=== PATIENT | male | born 1980 | race African-American/Black ===

== ENCOUNTER 2019-08-21 18:28 | Inpatient (IN) ==
[2019-08-21] MEDS ORDERED: MoRPHine SULFATE 4 MG/ML 1 ML CARP\\VIAL IV STA (18:31)
[2019-08-21] MEDS ORDERED: ONDANSETRON INJ 2 MG/ML 2 ML VIAL IV STA (18:31)
[2019-08-21] MEDS ORDERED: HEPARIN (PORCINE) 1000 UNIT/ML 10 ML (CATH LAB USE ONLY) ONE (18:35)
[2019-08-21] MEDS ORDERED: METOPROLOL TARTRATE 1 MG/ML VIAL IV STA (18:35)
[2019-08-21] MEDS ORDERED: NiCARDipine HCL INJ 2.5 MG/ML 10 ML AMP ONE (18:35)
[2019-08-21] MEDS ORDERED: NITROGLYCERIN/D5W 100MCG/ML 20ML SYR ONE (18:36)
[2019-08-21] MEDS ORDERED: fentaNYL citrate 100 MCG/2 ML VIAL ONE (18:36)
[2019-08-21] MEDS ORDERED: MIDAZOLAM HCL 1 MG/ML 2ML VIAL ONE (18:36)
[2019-08-21] MEDS ORDERED: AMIODARONE IV BOLUS / DRIP IV STA (18:41)
[2019-08-21] MEDS ORDERED: AMIODARONE / D5W 150 MG/100 ML BAG IV STA (18:41)
[2019-08-21 18:43] LABS: Basophils # (auto) 0.02 K/uL (0-0.2); Basophils % (auto) 0.1 %; Eosinophils # (auto) 0.07 K/uL (0-0.5); Eosinophils % (auto) 0.5 %; Hematocrit (blood only) 44.6 % (42-52); Hemoglobin 15.9 g/dL (14.0-18.0); Immature Granulocytes # (auto) 0.05 K/uL (0.00-0.02); Immature Granulocytes % (auto) 0.4 %; Lymphocytes # (auto) 3.72 K/uL (1.2-3.4); Lymphocytes % (auto) 27.6 %; Mean Corpuscular Hemoglobin 29.7 pg (25-34); Mean Corpuscular Hgb Conc 35.7 g/dL (32-36); Mean Corpuscular Volume 83.4 fL (80-100); Mean Platelet Volume 9.3 fL (7.4-10.4); Monocytes # (auto) 0.56 K/uL (0.11-0.59); Monocytes % (auto) 4.1 %; Neutrophils # (auto) 9.08 K/uL (1.4-6.5); Neutrophils % (auto) 67.3 %; Platelet Count 326 K/uL (130-400); RDW Coefficient of Variation 13.3 % (11.5-14.5); RDW Standard Deviation 40.2 fL (36.4-46.3); Red Blood Count 5.35 M/uL (4.7-6.1)
[2019-08-21] MEDS ORDERED: AMIODARONE / D5W 360 MG/200 ML BAG IV SCH (18:45)
[2019-08-21 18:53] LABS: INR 1.1 (0.9-1.1); Partial Thromboplastin Ratio 0.8; Partial Thromboplastin Time 21.6 Seconds (21.0-31.0); Prothrombin Time 11.5 Seconds (9.0-12.0)
--- NOTE | 2019-08-21 18:58 | XRay Report ---
XR chest 1V portable CLINICAL HISTORY: Chest Pain COMPARISON STUDY: No previous studies for comparison. FINDINGS: Lung volumes are mildly diminished. There is no pneumothorax or pleural effusion. There is no evidence for overt pulmonary edema. Moderate enlargement of the cardiac silhouette is noted. There is upper mediastinal widening. This could be technical on this semierect AP chest radiograph. IMPRESSION: 1. Upper mediastinal widening. This may be technical on this rotated semierect AP chest radiograph. H owever, if unexplained chest pain, CTA of the chest is recommended. 2. Mild enlargement of the cardiac silhouette, accentuated on this exam. Pulmonary vascular congestio n without overt pulmonary edema. ACT 112: Negative or not required by law. Electronically signed by: Gerardo Pastor M.D. 08/21/2019 6:57 PM
[2019-08-21] MEDS: TICAGRELOR 90 MG TAB PO SCH (19:00)
[2019-08-21 19:01] LABS: Alanine Aminotransferase 34 U/L (12-78); Albumin Level 4.2 gm/dl (3.4-5.0); BUN Creatinine Ratio 12.5 (10-20); Blood Urea Nitrogen 16 mg/dl (7-18); Calcium 9.1 mg/dl (8.5-10.1); Carbon Dioxide 28 mmol/L (21-32); Chloride 103 mmol/L (98-107); Est GFR (African American) 78.4; Est GFR (Non-African American) 67.6; Glucose 138 mg/dl (70-99); Lipase 44 U/L (73-393); Sodium 138 mmol/L (136-145)
--- NOTE | 2019-08-21 19:03 | Pre Anesthesia Assessment ---
Date of Service August 21, 2019 Pre Sedation Assessment Cardiovascular RRR, no murmur, no edema + tachycardic Respiratory normal respiratory effort, lungs clear to auscultation Pre-Sedation Airway Assessment Smoking Status: Never smoker Short, Thick Neck: Yes Mallampati Class: II ASA: ASA2 Procedure Planning Contraindications for Sedation: none Current Medications Reviewed: Yes Notes The planned sedation has been discussed with the patient. Informed Consent was obtained. I have identified the patient, determined the appropriateness of sedation and have assessed the patient immediately prior to the procedure. All medicine(s) and interventions are by my order.
[2019-08-21] MEDS ORDERED: BIVALIRUDIN 250 MG VIAL (CATH LAB ONLY) ONE (19:04)
--- NOTE | 2019-08-21 19:04 | Post Anesthesia Assessment ---
Date of Service August 21, 2019 Post Sedation Assessment Vital Signs Temp Pulse Resp BP Pulse Ox 08/21/19 18:55 174/126 H 97 08/21/19 18:50 92 H 27 H 164/117 H 98 08/21/19 18:45 82 19 157/112 H 100 08/21/19 18:42 85 20 168/102 H 99 08/21/19 18:40 85 21 160/109 H 100 08/21/19 18:38 73 22 195/111 H 98 08/21/19 18:33 84 20 186/135 H 98 08/21/19 18:26 99 08/21/19 18:25 37 C 85 20 186/135 H 98 Recovery Score Activity: Moves 4 extremities Respiration: Deep Breath/Cough Consciousness: Fully Awake Discharge Sedation Level of Care: Phase I Post Sedation Plan On clinical assessment, the patient appears to have tolerated the sedation without complications. Patient is recovering as anticipated. Patient will continue to be monitored by nursing and may be discharged when sedation discharge criteria are met per below protocol. Upon Completions of procedure up to 15 minutes continue every 5 minute vital signs and the P.A.R. score; then discharge to a Phase I or Fast Track to Phase II per the following guidelines: * Discharge Patient to appropriate Phase II area if PAR is 8 or greater or return to pre- procedure baseline. The post - procedure orders will be as directed. * If PAR score is less than 8 or not return to pre-procedure baseline then patient will follow Phase I monitoring till PAR is reached for Phase II. The Phase I may be done in procedure room or may call to secure a Phase I area. * If naloxone or flumazenil are used for reversal, hold in Phase I for continued monitoring from when last reversal dose was given for a minimum of 60 minutes or longer pending the nurse and/or physician discretion of patient condition before discharge to Phase II. Please call the Sedation Physician to re-evaluate and complete post-note for discharge to Phase II area. Do NOT discharge from procedure sedation or Phase 1 until post- sedation evaluation note is complete by procedure /sedation MD Sedation Discharge Instructions to be given to the patient at discharge to home.
[2019-08-21 19:06] LABS: Albumin Globulin Ratio 0.9 (0.9-2); Alkaline Phosphatase 45 U/L (45-117); Bilirubin,Total 0.5 mg/dl (0.2-1); Globulin 4.5 gm/dl (2.5-4.0); Total Protein 8.7 gm/dl (6.4-8.2); Troponin I < 0.015 ng/ml (0-0.045)
[2019-08-21] MEDS ORDERED: LABETALOL HCL IV 5 MG/ML 20ML (CATH LAB USE ONLY) ONE (19:26)
[2019-08-21] MEDS ORDERED: NITROGLYCERIN/D5W 100 MCG/ML BTL ONE ×2 (19:27→19:29)
--- NOTE | 2019-08-21 19:42 | Post Operative Brief Note ---
Cardiology Brief Post Op Date of Surgery August 21, 2019 Pre & Post Diagnosis Operation Date: 08/21/19 18:45 <No data on this case meets the specified criteria> Procedure Cardiac catheterization, coronary angiography Percutaneous intervention to proximal left and descending artery with drug- eluting stent. Filtrose Crusher Nishant Fernando MD Fish Drier none Estimated Blood Loss 15 Findings Consistent with Post-Op Diagnosis 38-year-old gentleman, no previous known history of cardiac or coronary artery disease. Came into hospital by ambulance with acute anterior ST elevation myocardial infarction, cardiac catheterization revealed occluded proximal left anterior d escending artery, successful PCI performed with placement of 3.5 mm x 23 mm Xience drug-eluting stent, postdilated with 4 mm NC balloon with excellent results. He had confucianism of flow however apical LAD was still occluded likely due to thrombus. Continue with aspirin, Brilinta, metoprolol, intravenous nitrates and amiodarone. Transferred to intensive care unit for close observation. Complications none
[2019-08-21] MEDS ORDERED: ONDANSETRON INJ 2 MG/ML 2 ML VIAL IV PRN (19:48)
[2019-08-21] MEDS ORDERED: SODIUM CHLORIDE 0.9% 1000ML 1,000 ML IV ONE (19:50)
--- NOTE | 2019-08-21 19:58 | Cardiac Catheterization ---
ACC Data: Mice Raiser Cardiac Status Clinical evaluation leading to the procedure Diagnostic Physicians Name: Nishant Fernando MD Closure Device Recommendations: PCI without planned CABG Cardiac Cath Procedure Full Procedure Date August 21, 2019 Pre-Procedure Diagnosis Pre-Procedure Diagnosis: STEMI (38-year-old gentleman with acute anterior STEMI, also had V. fib arrest in the emergency room requiring defibrillation.) AUC Score AUC Score: 9 Post-Procedure Diagnosis Post-Procedure Diagnosis: Successful PCI (Successful PCI of proximal LAD with placement of 3.5 mm x 23 mm Xience drug-eluting stent.) Procedure(s) Performed Procedure(s) Performed: Coronary Angiography and Drug Eluting Stent Chief Cook Nishant Fernando MD Estimated Blood Loss Estimated Blood Loss: 15 Medication(s) Medication(s): Aspirin, Bivalirudin, Fentanyl, Labetalol and Nitroglycerin Summary of Findings Successful PCI of occluded 100% proximal LAD, PCI with 3.5 mm x 23 mm Xience drug-eluting stent, postdilated with 4 mm NC balloon with 0% residual and [id number] flow. He did have thrombus occluding his apical LAD, hopefully will resolve with antiplatelet therapy. Hemodynamics Rest Ao:: 184/112 Final Ao: 164/96 LV: Not performed Recommendations Recommendations: PCI without planned CABG Procedural Complication(s) None Disposition ICU I attest to the content of the Intraoperative Record and any orders documented therein. Any exceptions are noted below. PG Care Time/CCT Total # of Minutes Spent Total Time Spent with Patient: Total time spent is greater than 50% in coordination of care (as documented) at patient's floor/unit and/or counseling patient:
--- NOTE | 2019-08-21 19:58 | Emergency Department Note ---
Entered by Kirsten Rashid acting as a scribe for Layo Rocha DO History of Present Illness General Chief complaint: Heart Alert Stated complaint: HEART ALERT History of Present Illness Provider complaint: chest pain Onset (ago): hour(s) 1 Location: chest and left Radiation: non-radiation Pain Consistency: + other (episode) Maximum Pain Intensity: 10 Relieved By: + none Associated symptoms: + denies other symptoms (back pain, neck pain ) and + other (former smoker, family history of WI); no shortness of breath Treatments prior to arrival: other (Aspirin, 2 nitroglycerin, Zofran) The patient is a 38 year old male who presents to the ED with complaints of an episode of chest pain that started 1 hour ago. The patient states that his pain is worse of the left side of his chest and it is non-radiating. The patient denies back pain, neck pain and shortness of breath. Per EMS, the patient was sitting and eating when his pain started. Per EMS, the patient was given Aspirin, 2 nitroglycerin and Zofran en route. The patient states that none of these medications helped his pain. The patient states that his mother had an WI when she was in her 40s. The patient notes that he is a former smoker. Home Medications Home Medications Medication Instructions Recorded Confirmed Type Unobtainable 08/21/19 08/21/19 History Allergies Allergy/AdvReac Type Severity Reaction Status Date / Time Unable to Assess Allergy Verified 08/21/19 18:55 Past Med/Surg History Medical History (Updated 08/22/19 @ 00:25 by Kirsten Rashid) HTN (hypertension) Family History (Updated 08/22/19 @ 00:25 by Kirsten Rashid) Mother Myocardial infarction Social History Preferred Language: Belarusian Communication Ability: Effective Policy Manager Required: No Beliefs That Will Affect Care: None Current Living Situation: Spouse and Family Other Information That Helps Us Care for You: No Feels Safe at Home: Yes Safety Concerns: Feels Safe At This Time Smoking Status: Former smoker Smoking End Date: 2012 ; Hx Alcohol Use: Yes Alcohol type: beer Hx Substance Use: No Review of Systems See HPI for pertinent positives & negatives. and A total of 10 systems reviewed and were otherwise negative Physical Exam Vital Signs Vital Signs - 24 hr 08/21/19 18:25 08/21/19 18:26 08/21/19 18:33 Temperature 37 C Temperature Source Oral Pulse Rate 85 84 Pulse Rate [Apical] Pulse Rate from SpO2 Sensor 85 Pulse Rhythm [Apical] Pulse Strength [Apical] Respiratory Rate 20 20 Respiratory Effort / Characteristics Respiratory Depth Respiratory Pattern Blood Pressure 186/135 H 186/135 H Blood Pressure [Left Arm] Blood Pressure Mean 152 151 Blood Pressure Mean [Left Arm] Blood Pressure Position [Left Arm] Pulse Oximetry 98 99 98 Oxygen Delivery Method Room Air Room Air Oxygen Flow Rate Sepsis Recent Fever Within 48 Hours No Sepsis New/Unexplained Change in Mental Status No Sepsis Action Taken by Nursing No Action Required 08/21/19 18:38 08/21/19 18:40 08/21/19 18:41 Temperature Temperature Source Pulse Rate 73 85 Pulse Rate [Apical] Pulse Rate from SpO2 Sensor 76 85 Pulse Rhythm [Apical] Pulse Strength [Apical] Respiratory Rate 22 21 Respiratory Effort / Characteristics Respiratory Depth Respiratory Pattern Blood Pressure 195/111 H 160/109 H Blood Pressure [Left Arm] Blood Pressure Mean 129 125 Blood Pressure Mean [Left Arm] Blood Pressure Position [Left Arm] Pulse Oximetry 98 100 Oxygen Delivery Method Non-rebreather Oxygen Flow Rate 15 15 15 Sepsis Recent Fever Within 48 Hours Sepsis New/Unexplained Change in Mental Status Sepsis Action Taken by Nursing 08/21/19 18:42 08/21/19 18:45 08/21/19 18:50 Temperature Temperature Source Pulse Rate 85 82 92 H Pulse Rate [Apical] Pulse Rate from SpO2 Sensor 87 82 90 Pulse Rhythm [Apical] Pulse Strength [Apical] Respiratory Rate 20 19 27 H Respiratory Effort / Characteristics Respiratory Depth Respiratory Pattern Blood Pressure 168/102 H 157/112 H 164/117 H Blood Pressure [Left Arm] Blood Pressure Mean 128 123 129 Blood Pressure Mean [Left Arm] Blood Pressure Position [Left Arm] Pulse Oximetry 99 100 98 Oxygen Delivery Method Oxygen Flow Rate 15 15 15 Sepsis Recent Fever Within 48 Hours Sepsis New/Unexplained Change in Mental Status Sepsis Action Taken by Nursing 08/21/19 18:55 08/21/19 19:49 08/21/19 19:50 Temperature 36.9 C 36.9 C Temperature Source Oral Oral Pulse Rate Pulse Rate [Apical] 85 85 Pulse Rate from SpO2 Sensor 89 Pulse Rhythm [Apical] Regular Pulse Strength [Apical] Normal Respiratory Rate 14 20 Respiratory Effort / Characteristics Non-Labored Spontaneous Non-Labored Spontaneous Respiratory Depth Normal Normal Respiratory Pattern Regular Blood Pressure 174/126 H Blood Pressure [Left Arm] 169/130 H 169/130 H Blood Pressure Mean 149 Blood Pressure Mean [Left Arm] 143 143 Blood Pressure Position [Left Arm] Lying Lying Pulse Oximetry 97 97 96 Oxygen Delivery Method Nasal Cannula Nasal Cannula Oxygen Flow Rate 15 2 Sepsis Recent Fever Within 48 Hours Sepsis New/Unexplained Change in Mental Status Sepsis Action Taken by Nursing 08/21/19 20:04 Temperature Temperature Source Pulse Rate Pulse Rate [Apical] 85 Pulse Rate from SpO2 Sensor Pulse Rhythm [Apical] Regular Pulse Strength [Apical] Normal Respiratory Rate 18 Respiratory Effort / Characteristics Non-Labored Spontaneous Respiratory Depth Normal Respiratory Pattern Blood Pressure Blood Pressure [Left Arm] 157/129 H Blood Pressure Mean Blood Pressure Mean [Left Arm] 138 Blood Pressure Position [Left Arm] Lying Pulse Oximetry 97 Oxygen Delivery Method Nasal Cannula Oxygen Flow Rate 2 Sepsis Recent Fever Within 48 Hours Sepsis New/Unexplained Change in Mental Status Sepsis Action Taken by Nursing GENERAL: The patient is awake and alert. He is very anxious and appears to be uncomfortable. He appears to be in severe pain. EYES: The conjunctivae are injected bilaterally. The pupils are round and reactive. EARS, NOSE, MOUTH AND THROAT: The nose is without any evidence of any deformity. Mucous membranes are moist. Tongue is midline. NECK: The neck is nontender and supple. RESPIRATORY: There are rales noted in both lung sanchez. There is tachypnea. There is no conversational dyspnea. CARDIOVASCULAR: Regular rate and rhythm noted there no murmurs rubs or gallops normal S1 normal S2. GASTROINTESTINAL: The abdomen is soft. Abdomen is nontender. MUSCULOSKELETAL/EXTREMITIES: There is no evidence of gross deformity full range of motion is noted in the hips and shoulders. SKIN: There is no obvious evidence of any rash. Trace pedal edema was noted. Pulses are symmetric in both lower extremities. Radial pulses are symmetric and bounding. NEUROLOGIC: Patient is awake alert and oriented x3 strength is symmetric patellar reflexes are 2+ bilaterally Course Course 182: Past medical records reviewed. The patient was evaluated in room B01. A complete history and physical exam was performed. 1825: I discussed the patient's case with Dr. Fernando- Cardiology. He states that he will come and evaluated the patient. 1836: The patient went into a dysrhythmia at this time. CPR was started and patient was defibrillated two times at 200 joules. He returned to a normal sinus rhythm with spontaneous return of pulse. 1933: I discussed the patient's case with Dr. Traylor [facility], Hospitalist. He will evaluate the patient for further management. Consultations Consultation #1: I discussed the patient's case with Dr. Fernando- Cardiology. He states that he will come and evaluated the patient. Time: 18:26 Consultation #2: I discussed the patient's case with Dr. Traylor [facility], Hospitalist. He will evaluate the patient for further management. Time: 19:33 Administered Medications Atorvastatin Calcium (Lipitor) 40 mg PO QAM [facility] Stop: 09/20/19 19:59 Last Admin: 08/21/19 21:12 Dose: 40 mg Documented by: [id number] Amiodarone HCl/Dextrose (Nexterone / D5w) 360 mg in 200 mls @ 16.667 mls/hr IV .Q12H DEEJAY Stop: 09/21/19 00:40 Last Admin: 08/22/19 00:46 Dose: 0.5 mg/min, 16.7 mls/hr Documented by: [id number] Cosigned by: [id number] Sodium Chloride (Nss 1000ml) 1,000 mls @ 100 mls/hr IV .Q10H ONE Stop: 08/22/19 05:49 Last Admin: 08/21/19 20:56 Dose: 100 mls/hr Documented by: [id number] Famotidine 20 mg/ Syringe 5 mls @ 2.5 mls/min IV Q12H DEEJAY Stop: 09/20/19 20:14 Last Admin: 08/21/19 20:54 Dose: 2.5 mls/min Documented by: [id number] Nitroglycerin/Dextrose (Nitroglycerin/D5w 100 Mcg/Ml) 250 mls @ 3 mls/hr IV .Q24H DEEJAY; Protocol Stop: 09/20/19 21:14 Last Titration: 08/21/19 23:16 Dose: 5 mcg/min, 3 mls/hr Documented by: [id number] Admin: 08/21/19 21:37 Dose: 10 mcg/min, 6 mls/hr Documented by: [id number] Cosigned by: [id number] Metoprolol Tartrate (Lopressor) 25 mg PO BID DEEJAY Stop: 09/20/19 20:59 Last Admin: 08/21/19 20:55 Dose: 25 mg Documented by: [id number] Ticagrelor (Brilinta) 90 mg PO BID DEEJAY Stop: 09/20/19 20:59 Last Admin: 08/21/19 19:00 Dose: 180 mg Documented by: [id number] Discontinued Medications Amiodarone HCl (Cordarone Iv Bolus / Drip) 1 ea IV NOW STA; Protocol Stop: 08/21/19 18:42 Last Admin: 08/21/19 19:49 Dose: 1 ea Documented by: [id number] Bivalirudin (Angiomax (Process Designer Only)) Confirm Administered Dose 500 mg .ROUTE .STK-MED ONE Stop: 08/21/19 19:05 Last Admin: 08/21/19 19:49 Dose: 500 mg Documented by: [id number] Fentanyl Citrate (Fentanyl Citrate) Confirm Administered Dose 100 mcg .ROUTE .STK-MED ONE Stop: 08/21/19 18:37 Last Admin: 08/21/19 19:47 Dose: 100 mcg Documented by: [id number] Heparin Sodium (Porcine) (Heparin Iv Bolus (Process Designer Use Only)) Confirm Administered Dose 10,000 units .ROUTE .STK-MED ONE Stop: 08/21/19 18:36 Last Admin: 08/21/19 19:47 Dose: Not Given Documented by: [id number] Heparin Sodium/Sodium Chloride (Heparin/Nss 1000 Unit/500ml Flush Bag) Confirm Administered Dose 3,000 units IV .STK-MED ONE Stop: 08/21/19 18:37 Last Admin: 08/21/19 19:48 Dose: 3,000 units Documented by: [id number] Amiodarone HCl/Dextrose (Nexterone / D5w) 150 mg in 100 mls @ 600 mls/hr IV ONE STA Stop: 08/21/19 18:50 Last Infusion: 08/21/19 20:52 Dose: 0 mls/hr Documented by: [id number] Cosigned by: [id number] Admin: 08/21/19 18:49 Dose: 600 mls/hr Documented by: [id number] Cosigned by: [id number] Amiodarone HCl/Dextrose (Nexterone / D5w) 360 mg in 200 mls @ 33.333 mls/hr IV .Q6H [facility] Stop: 08/22/19 00:44 Last Admin: 08/21/19 20:57 Dose: 1 mg/min, 33.3 mls/hr Documented by: [id number] Cosigned by: [id number] Labetalol HCl (Normodyne (Process Designer Use Only)) Confirm Administered Dose 10 mg .ROUTE .STK-MED ONE Stop: 08/21/19 19:27 Last Admin: 08/21/19 19:49 Dose: 10 mg Documented by: [id number] Metoprolol Tartrate (Lopressor) 5 mg IV NOW STA Stop: 08/21/19 18:36 Last Admin: 08/21/19 19:14 Dose: Not Given Documented by: [id number] Midazolam HCl (Versed) Confirm Administered Dose 2 mg .ROUTE .STK-MED ONE Stop: 08/21/19 18:37 Last Admin: 08/21/19 19:48 Dose: 2 mg Documented by: [id number] Morphine Sulfate (Morphine Sulfate) 4 mg IV NOW STA Stop: 08/21/19 18:32 Last Admin: 08/21/19 18:38 Dose: 4 mg Documented by: [id number] Nicardipine HCl (Cardene) Confirm Administered Dose 25 mg .ROUTE .STK-MED ONE Stop: 08/21/19 18:36 Last Admin: 08/21/19 19:47 Dose: Not Given Documented by: [id number] Nitroglycerin/Dextrose (Nitroglycerin/D5w 100 Mcg/Ml 20ml Syringe) Confirm Administered Dose 2,000 mcg .ROUTE .STK-MED ONE Stop: 08/21/19 18:37 Last Admin: 08/21/19 19:48 Dose: 2,000 mcg Documented by: [id number] Nitroglycerin/Dextrose (Nitroglycerin/D5w 100 Mcg/Ml) Confirm Administered Dose 25 mg .ROUTE .STK-MED ONE Stop: 08/21/19 19:28 Last Admin: 08/21/19 19:49 Dose: 5 mcg.per.kg Documented by: [id number] Cosigned by: [id number] Nitroglycerin/Dextrose (Nitroglycerin/D5w 100 Mcg/Ml) Confirm Administered Dose 25 mg .ROUTE .STK-MED ONE Stop: 08/21/19 19:30 Last Admin: 08/21/19 19:49 Dose: Not Given Documented by: [id number] Ondansetron HCl (Zofran) 4 mg IV NOW STA Stop: 08/21/19 18:32 Last Admin: 08/21/19 18:38 Dose: 4 mg Documented by: [id number] Critical Care Time Critical Care Time: Yes Total Critical Care Time: 60 I have personally spent greater than 60 minutes of critical care time in the direct management of this patient. This includes bedside care, interpretation o f diagnostic studies, and testing, discussion with consultants, patient, and family members, and other required patient management activities. This 60 minutes is in excess of all separately billable procedures. Medical Decision Making Differential Diagnosis Differential diagnosis: Etiologies such as shingles, musculoskeletal pain, pericarditis, myocarditis, cardiac ischemia, pericardial tamponade, pneumonia, pneumothorax, pleural effusion, hemothorax, pleurisy, aortic pathology, pulmonary embolism, intra- abdominal process, as well as others were considered. Medical Records Attestation: I reviewed the patient's medical records. Home Medications Current Medication List: was personally reviewed by me Laboratory Data Attestation: I reviewed the patient's lab results. Result diagrams: 08/21/19 18:34 08/21/19 21:38 Lab Results 08/21/19 08/21/19 08/21/19 Range/Units 18:34 18:34 18:34 WBC 13.50 H (4.8-10.8) K/uL RBC 5.35 (4.7-6.1) M/uL Hgb 15.9 (14.0-18.0) g/dL Hct 44.6 (42-52) % MCV 83.4 (80-100) fL MCH 29.7 (25-34) pg MCHC 35.7 (32-36) g/dL RDW Std Deviation 40.2 (36.4-46.3) fL RDW Coeff of Lazaro 13.3 (11.5-14.5) % Plt Count 326 (130-400) K/uL MPV 9.3 (7.4-10.4) fL Immature Gran % (Auto) 0.4 % Neut % (Auto) 67.3 % Lymph % (Auto) 27.6 % Cotton % (Auto) 4.1 % Eos % (Auto) 0.5 % Baso % (Auto) 0.1 % Immature Gran # (Auto) 0.05 H (0.00-0.02) K/uL Neut # (Auto) 9.08 H (1.4-6.5) K/uL Lymph # (Auto) 3.72 H (1.2-3.4) K/uL Cotton # (Auto) 0.56 (0.11-0.59) K/uL Eos # (Auto) 0.07 (0-0.5) K/uL Baso # (Auto) 0.02 (0-0.2) K/uL PT 11.5 (9.0-12.0) Seconds INR 1.1 (0.9-1.1) APTT 21.6 (21.0-31.0) Seconds PTT Ratio 0.8 Sodium 138 (136-145) mmol/L Potassium (3.5-5.1) mmol/L Chloride 103 (98-107) mmol/L Carbon Dioxide 28 (21-32) mmol/L Anion Gap 7.0 (3-11) BUN 16 (7-18) mg/dl Creatinine 1.31 (0.6-1.4) mg/dl Est Cr Clr Drug Dosing Not Reportable Est GFR ( Amer) 78.4 Est GFR (Non-Af Amer) 67.6 BUN/Creatinine Ratio 12.5 (10-20) Glucose 138 H (70-99) mg/dl Calcium 9.1 (8.5-10.1) mg/dl Total Bilirubin 0.5 (0.2-1) mg/dl AST (15-37) U/L ALT 34 (12-78) U/L Alkaline Phosphatase 45 (45-117) U/L Troponin I < 0.015 (0-0.045) ng/ml Total Protein 8.7 H (6.4-8.2) gm/dl Albumin 4.2 (3.4-5.0) gm/dl Globulin 4.5 H (2.5-4.0) gm/dl Albumin/Globulin Ratio 0.9 (0.9-2) Triglycerides (0-150) mg/dl Cholesterol (0-200) mg/dl LDL Cholesterol, Calc mg/dl VLDL Cholesterol, Calc mg/dl HDL Cholesterol mg/dl Cholesterol/HDL Ratio Lipase 44 L (73-393) U/L 08/21/19 Range/Units 18:34 WBC (4.8-10.8) K/uL RBC (4.7-6.1) M/uL Hgb (14.0-18.0) g/dL Hct (42-52) % MCV (80-100) fL MCH (25-34) pg MCHC (32-36) g/dL RDW Std Deviation (36.4-46.3) fL RDW Coeff of Lazaro (11.5-14.5) % Plt Count (130-400) K/uL MPV (7.4-10.4) fL Immature Gran % (Auto) % Neut % (Auto) % Lymph % (Auto) % Cotton % (Auto) % Eos % (Auto) % Baso % (Auto) % Immature Gran # (Auto) (0.00-0.02) K/uL Neut # (Auto) (1.4-6.5) K/uL Lymph # (Auto) (1.2-3.4) K/uL Cotton # (Auto) (0.11-0.59) K/uL Eos # (Auto) (0-0.5) K/uL Baso # (Auto) (0-0.2) K/uL PT (9.0-12.0) Seconds INR (0.9-1.1) APTT (21.0-31.0) Seconds PTT Ratio Sodium (136-145) mmol/L Potassium (3.5-5.1) mmol/L Chloride (98-107) mmol/L Carbon Dioxide (21-32) mmol/L Anion Gap (3-11) BUN (7-18) mg/dl Creatinine (0.6-1.4) mg/dl Est Cr Clr Drug Dosing Est GFR ( Amer) Est GFR (Non-Af Amer) BUN/Creatinine Ratio (10-20) Glucose (70-99) mg/dl Calcium (8.5-10.1) mg/dl Total Bilirubin (0.2-1) mg/dl AST (15-37) U/L ALT (12-78) U/L Alkaline Phosphatase (45-117) U/L Troponin I (0-0.045) ng/ml Total Protein (6.4-8.2) gm/dl Albumin (3.4-5.0) gm/dl Globulin (2.5-4.0) gm/dl Albumin/Globulin Ratio (0.9-2) Triglycerides 262 H (0-150) mg/dl Cholesterol 219 H (0-200) mg/dl LDL Cholesterol, Calc 129 mg/dl VLDL Cholesterol, Calc 52 mg/dl HDL Cholesterol 38 mg/dl Cholesterol/HDL Ratio 6 Lipase (73-393) U/L Imaging Data Radiologist's Impression: Radiology results as stated below per my review and the radiologist's interpretation: XR chest 1V portable CLINICAL HISTORY: Chest Pain COMPARISON STUDY: No previous studies for comparison. FINDINGS: Lung volumes are mildly diminished. There is no pneumothorax or pleural effusion. There is no evidence for overt pulmonary edema. Moderate enlargement of the cardiac silhouette is noted. There is upper mediastinal widening. This could be technical on this semierect AP chest radiograph. IMPRESSION: 1. Upper mediastinal widening. This may be technical on this rotated semierect AP chest radiograph. However, if unexplained chest pain, CTA of the chest is recommended. 2. Mild enlargement of the cardiac silhouette, accentuated on this exam. Pulmonary vascular congestion without overt pulmonary edema. ACT 112: Negative or not required by law. Electronically signed by: Gerardo Pastor M.D. 08/21/2019 6:57 PM ECG Data Attestation: I personally reviewed and interpreted this ECG as follows: Indication: + chest pain Rate (beats per minute): 83 Rhythm: + normal sinus ECG ST segments: + ST elevation (anteriorly, with reciprocal changes noted in inferior leads) ECG Findings: + PVCs and + Peaked T waves (consistent with ischemia) Comparison ECG Date: from (prehospital) Change: no significant change Additional Comments: PREHOSPITAL EKG: Rate: 86 Rhythm: Normal sinus rhythm Findings: No ectopy, ST elevation noted in anterior leads with reciprocal changes noted inferiorly. No prior EKG. SECOND EKG: Rate: 85 Rhythm: Normal sinus rhythm Findings: No ectopy, acute ST elevation noted in anterior leads with reciprocal changes noted in inferior leads, consistent with anterior wall WI. Changes have worsened since first EKG. Blood Pressure Blood Pressure Findings: Normal blood pressure Blood Pressure Disposition: did not require urgent referral MDM Narrative The patient is a 38-year-old male who presented to the emergency department by ambulance for an evaluation of chest pain. I received a prehospital notifica tion about this patient. He was made a heart alert prior to arrival because of an abnormal EKG which appear to be consistent with an anterior wall WI. The patient was treated with aspirin and nitroglycerin prior to arrival. He was placed on oxygen. Upon arrival to the emergency department the patient had serial EKGs by the prehospital personnel as well as the emergency department staff. I reviewed the serial EKGs which did reveal progression of acute anterior wall WI with reciprocal changes in the inferior leads. The patient was treated with IV fluids and IV morphine in the emergency department. I discussed his condition with the energy auditor shortly after the patient's arrival. The patient continued to have very severe pain. Initially we did order Lopressor and the patient however this was held after he had an episode of wide-complex tachycardia as well as V. fib. The patient received 2 defibrillations as well as CPR. He did have a return of pulses. He was treated with amiodarone. I discussed the patient's condition with him. He is aware the severity of his condition at this time. He was evaluated by the energy auditor and was agreeable to interventional treatment. The patient did not require advanced airway management prior to the Process Designer as he was awake and alert despite having the episode of wide-complex tachycardia and ventricular fibrillation. Impression & Plan Acute anterior wall WI, Acute lateral wall myocardial infarction, Cardiac arrest, Ventricular fibrillation, Chest pain Discharge Plan Visit Data *Final* Discharge Date/Time: 08/21/19 18:55 Chief Complaint: Heart Alert Stated Complaint: HEART ALERT ED Provider: Layo Rocha Discharge Problem: Acute anterior wall WI, Acute lateral wall myocardial infarction, Cardiac arrest, Ventricular fibrillation, Chest pain Patient Disposition: Being Evaluated by Hospitalist Discharge Instructions Interventions: ED Discharge Assessment Last Done: 08/21/19 18:55 Discharge Problem: Chest pain Qualifiers: Chest pain type: unspecified Qualified Code(s): R07.9 - Chest pain, unspecified The scribe's documentation has been prepared under my direction and personally reviewed by me in its entirety. I confirm that the note above accurately reflects all work, treatment, procedures, and medical decision making performed by me.
[2019-08-21] MEDS ORDERED: ICU PROTOCOL FOR HYPERGLYCEMIA PRN (20:04)
--- NOTE | 2019-08-21 20:12 | History & Physical Report ---
Date of Service August 21, 2019 Assessment & Plan (1) Acute ST elevation myocardial infarction (STEMI) of septum: Acute STEMI of septum/occlusion of LAD/status post PTCA with single drug- eluting stent- Patient presented to the emergency department as a heart alert. Continue amiodarone drip, aspirin, Brilinta, metoprolol and other regimen per interventionalist and sample taker operator. Present on Admission?: Yes (2) Occlusion of LAD (left anterior descending) artery: See above Present on Admission?: Yes (3) S/P PTCA (percutaneous transluminal coronary angioplasty): See above Present on Admission?: Yes (4) S/P drug eluting coronary stent placement: See above Present on Admission?: Yes (5) Polymorphic ventricular tachycardia: Polymorphic ventricular tachycardia status post successful cardioversion in the ED prior to cardiac catheterization Present on Admission?: Yes (6) History of cardioversion: See above Present on Admission?: Yes (7) CAD (coronary artery disease): CAD/hypertension- Medications per interventional team Present on Admission?: Yes (8) HTN (hypertension): See above Present on Admission?: Yes (9) Admitted to intensive care unit: Admission to ICU, with consults to interventional cardiology and sample taker operator Present on Admission?: Yes History of Present Illness Chief Complaint: The patient presented to the emergency department as a heart alert, after having been found in the outpatient setting to have severe chest pain. Primary Care Provider: NO PCP The patient is a 38-year-old -L[place] male with a past medical history including hypertension, who presented to the emergency department after been found in the outpatient setting to have severe chest pain. He was also noted to have an abnormal heart rhythm, and was started on amiodarone. Upon arrival in the emergency department, the amiodarone was continued, and he did undergo successful cardioversion for polymorphic V. tach/torsades. He was then taken urgently to the [facility], where he found to have a complete proximal LAD occlusi on, which was opened with a single drug-eluting stent. Patient was then transferred to the ICU for further treatment. Allergies Allergy/AdvReac Type Severity Reaction Status Date / Time Unable to Assess Allergy Verified 08/21/19 18:55 Home Medications Home Medications Medication Instructions Recorded Confirmed Type Unobtainable 08/21/19 08/21/19 History Past Med/Surg History Social History Preferred Language: Khmer Communication Ability: Effective [place] Required: No Beliefs That Will Affect Care: None Current Living Situation: Spouse and Family Other Information That Helps Us Care for You: No Feels Safe at Home: Yes Safety Concerns: Feels Safe At This Time Smoking Status: Former smoker Smoking End Date: 2012 ; Hx Alcohol Use: Yes Alcohol type: beer Hx Substance Use: No Review of Systems Review of Systems: The patient upon arrival denied Sore throat, fevers, chills, sweats, nausea, vomiting, diarrhea , constipation, abdominal pain, pelvic pain, blood in urine or stool, dysuria, urinary frequency or urgency, headache, memory loss, loss of consciousness, rash, abnormal bruising or bleeding, imbalance, focal weakness, numbness or tingling in arms or legs, generalized ar thralgias or myalgias, back or neck pain, or night sweats. The review of systems is otherwise negative other than for that already noted above, and at least 10 systems have been reviewed. Physical Exam Physical Exam: The patient is awake, alert and oriented 3, well developed and well nourished, normocephalic and atraumatic, lying in bed and post cath procedure in no acute distress. HEENT--PERRL, EOMI, mucous membranes and oropharynx normal. Neck--supple. No JVD. No bruits. Thyroid normal, trachea midline, no adenopathy. Heart--normal S1 and S2. No murmurs, rubs or gallops. Lungs--clear bilaterally, no respiratory distress, no accessory muscle use. Abdomen--normal bowel sounds and soft. Nontender. Nondistended. Extremities--no cyanosis or clubbing. No edema. There are good distal pulses b/l. Dermatologic--normal skin turgor, normal color, no abnormal lymph nodes, no rash. Neurologic--cranial nerves II through XII grossly intact. Rheumatologic--normal range of motion. Psychiatric--normal affect. Results & Data Vital Signs (Past 12 Hours) Vital Signs Temp Pulse Resp BP Pulse Ox 08/21/19 18:55 174/126 H 97 08/21/19 18:50 92 H 27 H 164/117 H 98 08/21/19 18:45 82 19 157/112 H 100 08/21/19 18:42 85 20 168/102 H 99 08/21/19 18:40 85 21 160/109 H 100 08/21/19 18:38 73 22 195/111 H 98 08/21/19 18:33 84 20 186/135 H 98 08/21/19 18:26 99 08/21/19 18:25 98.6 F 85 20 186/135 H 98 Laboratory Results Laboratory Results WBC 13.50 K/uL (4.8-10.8) H 08/21/19 18:34 RBC 5.35 M/uL (4.7-6.1) 08/21/19 18:34 Hgb 15.9 g/dL (14.0-18.0) 08/21/19 18:34 Hct 44.6 % (42-52) 08/21/19 18:34 MCV 83.4 fL (80-100) 08/21/19 18:34 MCH 29.7 pg (25-34) 08/21/19 18:34 MCHC 35.7 g/dL (32-36) 08/21/19 18:34 RDW Std Deviation 40.2 fL (36.4-46.3) 08/21/19 18:34 RDW Coeff of Lazaro 13.3 % (11.5-14.5) 08/21/19 18:34 Plt Count 326 K/uL (130-400) 08/21/19 18:34 MPV 9.3 fL (7.4-10.4) 08/21/19 18:34 Immature Gran % (Auto) 0.4 % 08/21/19 18:34 Neut % (Auto) 67.3 % 08/21/19 18:34 Lymph % (Auto) 27.6 % 08/21/19 18:34 Davidson % (Auto) 4.1 % 08/21/19 18:34 Eos % (Auto) 0.5 % 08/21/19 18:34 Baso % (Auto) 0.1 % 08/21/19 18:34 Immature Gran # (Auto) 0.05 K/uL (0.00-0.02) H 08/21/19 18:34 Neut # (Auto) 9.08 K/uL (1.4-6.5) H 08/21/19 18:34 Lymph # (Auto) 3.72 K/uL (1.2-3.4) H 08/21/19 18:34 Davidson # (Auto) 0.56 K/uL (0.11-0.59) 08/21/19 18:34 Eos # (Auto) 0.07 K/uL (0-0.5) 08/21/19 18:34 Baso # (Auto) 0.02 K/uL (0-0.2) 08/21/19 18:34 PT 11.5 Seconds (9.0-12.0) 08/21/19 18:34 INR 1.1 (0.9-1.1) 08/21/19 18:34 APTT 21.6 Seconds (21.0-31.0) 08/21/19 18:34 PTT Ratio 0.8 08/21/19 18:34 Sodium 135 mmol/L (136-145) L 08/21/19 20:28 Potassium 5.2 mmol/L (3.5-5.1) H D 08/21/19 21:38 Chloride 102 mmol/L (98-107) 08/21/19 20:28 Carbon Dioxide 29 mmol/L (21-32) 08/21/19 20:28 Anion Gap 4.0 (3-11) 08/21/19 20:28 BUN 16 mg/dl (7-18) 08/21/19 20:28 Creatinine 1.25 mg/dl (0.6-1.4) 08/21/19 20:28 Est Cr Clr Drug Dosing 88.3 ml/min 08/21/19 20:28 Est GFR ( Amer) 83.0 08/21/19 20:28 Est GFR (Non-Af Amer) 71.6 08/21/19 20:28 BUN/Creatinine Ratio 12.4 (10-20) 08/21/19 20:28 Glucose 132 mg/dl (70-99) H 08/21/19 20:28 Calcium 9.2 mg/dl (8.5-10.1) 08/21/19 20:28 Phosphorus 4.3 mg/dl (2.5-4.9) 08/21/19 20:28 Magnesium 2.1 mg/dl (1.8-2.4) 08/21/19 20:28 Total Bilirubin 0.5 mg/dl (0.2-1) 08/21/19 18:34 AST U/L (15-37) 08/21/19 18:34 ALT 34 U/L (12-78) 08/21/19 18:34 Alkaline Phosphatase 45 U/L (45-117) 08/21/19 18:34 Troponin I 17.900 ng/ml (0-0.045) H* 08/21/19 20:28 Total Protein 8.7 gm/dl (6.4-8.2) H 08/21/19 18:34 Albumin 4.2 gm/dl (3.4-5.0) 08/21/19 18:34 Globulin 4.5 gm/dl (2.5-4.0) H 08/21/19 18:34 Albumin/Globulin Ratio 0.9 (0.9-2) 08/21/19 18:34 Triglycerides 262 mg/dl (0-150) H 08/21/19 18:34 Cholesterol 219 mg/dl (0-200) H 08/21/19 18:34 LDL Cholesterol, Calc 129 mg/dl 08/21/19 18:34 VLDL Cholesterol, Calc 52 mg/dl 08/21/19 18:34 HDL Cholesterol 38 mg/dl 08/21/19 18:34 Cholesterol/HDL Ratio 6 08/21/19 18:34 Lipase 44 U/L (73-393) L 08/21/19 18:34 Nasal Screen MRSA (PCR) Negative (Negative) 08/21/19 Unknown Diagnostic Findings [place], [place] [phone] XRay Report Patient: AAYUSH ESTEBANAdmit Date: 08/21/19 MR#: [id number]: Acct ID:[id number]: [facility] 1980[facility] Age[facility] 38Location: ED Sex: M Room/Bed: Att Phy:Diagnosis: HEART ALERT Josseline Phy: PCP,NOService Date: 08/21/19 Fam Phy:Interpreting Phy: Gerardo Pastor MD Admit Phy: Ordering Phy: Layo oRcha DO cc: ~ XR chest 1V portable CLINICAL HISTORY: Chest Pain COMPARISON STUDY: No previous studies for comparison. FINDINGS: Lung volumes are mildly diminished. There is no pneumothorax or pleural effusion. There is no evidence for overt pulmonary edema. Moderate enlargement of the cardiac silhouette is noted. There is upper mediastinal widening. This could be technical on this semierect AP chest radiograph. IMPRESSION: 1. Upper mediastinal widening. This may be technical on this rotated semierect AP chest radiograph. However, if unexplained chest pain, CTA of the chest is recommended. 2. Mild enlargement of the cardiac silhouette, accentuated on this exam. Pulmonary vascular congestion without overt pulmonary edema. ACT 112: Negative or not required by law. Electronically signed by: Gerardo Pastor M.D. 08/21/2019 6:57 PM Dictated: 08/21/191853 Transcribed: 08/21/191853 Code Status & VTE Plan Code Status Full code VTE Prophylaxis Plan VTE Prophylaxis will be ordered: Yes Critical Care Time Critical Care Time: Yes Total Critical Care Time: 45 Total critical care time was 45 minutes PG Care Time/CCT Total # of Minutes Spent Total Time Spent with Patient: Total time spent is greater than 50% in coordination of care (as documented) at patient's floor/unit and/or counseling patient: Critical Care Time: Yes Total Critical Care Time: 45 Coding Level of Care Code 36600 Initial Inpt Care Lvl [address] elevation myocardial infarction (STEMI) of septum I21.29 Occlusion of LAD (left anterior descending) artery I24.0 S/P PTCA (percutaneous transluminal coronary angioplasty) Z98.61 S/P drug eluting coronary stent placement Z95.5 Polymorphic ventricular tachycardia I47.2 History of cardioversion Z98.890 CAD (coronary artery disease) I25.10 HTN (hypertension) I10 Admitted to intensive care unit Z78.9 Additional Codes Critical Care Time - Critical Care Time: Yes ([id number]) Time Spent (min) 45
[2019-08-21 20:27] LABS: Chol HDL Ratio 6; Cholesterol 219 mg/dl (0-200); HDL Cholesterol 38 mg/dl; LDL Cholesterol Calculated 129 mg/dl; Triglycerides 262 mg/dl (0-150); VLDL Cholesterol 52 mg/dl
[2019-08-21] MEDS: FAMOTIDINE 20 MG in SYRINGE 3 ML IV SCH (20:54)
[2019-08-21] MEDS: METOPROLOL TARTRATE 25 MG TAB PO SCH (20:55)
[2019-08-21 21:02] LABS: BUN Creatinine Ratio 12.4 (10-20); Calcium 9.2 mg/dl (8.5-10.1); Creatinine Clr Calc Pharmacy 88.3 ml/min; Est GFR (Non-African American) 71.6; Magnesium 2.1 mg/dl (1.8-2.4); Phosphorus 4.3 mg/dl (2.5-4.9); Potassium 6.5 mmol/L (3.5-5.1); Troponin I 17.9 ng/ml (0-0.045)
--- NOTE | 2019-08-21 21:02 | Critical Care Consultation ---
Date of Consultation August 21, 2019 Assessment & Plan (1) Admitted to intensive care unit: Reason Critically Ill: 38-year-old male with acute anterior STEMI status post PTCA with GREG x1 to the proximal LAD. He initially presented with episode of polymorphic ventricular tachyarrhythmia requiring cardioversion x1 with conversion to normal sinus rhythm. Requiring close hemodynamic monitoring status post intervention. NEURO - * CAM ICU: NEGATIVE CARDIAC/VASCULAR - * Acute anterior STEMI status post PTCA with GREG x1 to the proximal LAD: * Complicated by transient run of symptomatic polymorphic ventricular tachyarrhythmia which did convert status post cardioversion x1. * Currently on amiodarone drip. Continue for now. * Currently on nitroglycerin drip for pain/blood pressure control. Titrate down as tolerated. * ASCVD per typical. * Trend troponins. * A.m. echo ordered. * EKG: NSR@85bpm. ST depression inferior w/ ST elevations anteriorly. QTc 440ms. * Monitor on telemetry. RESPIRATORY - * Previous smoker approximately 7 years ago. * Saturating well on room air at this time. GI/NUTRITION - * Heart healthy diet * Prophylaxis: Famotidine RENAL/LYTES - * Initial labs demonstrate hyperkalemia. Will repeat as concern for this to be an anomaly. * Repeat potassium 5.2. - * No concerns at this time. * Strict I&Os. ENDO - * No history of diabetes or thyroid disease. * BSGs per unit protocol. ISS --> gtt per unit policy. HEME - * Stable H&H. ID - * No concerns for infectious contribution at this time. LINES/IV ACCESS - * PIVs x2 DVT PROPHYLAXIS - * Will hold on chemoprophylaxis status post intraprocedural medications. * Aim for early ambulation. * SCDs I have personally spent 35 minutes of critical care time in the direct management of this patient. This is a life/limb threatening event. This includes time spent evaluating patient, direct bedside care, chart review, placing orders, interpretation of diagnostic studies, discussion with consultants, patient, and family members, as well as other required patient management activities. This time is exclusive of all separately billable procedures, and teaching time and separate from and in addition to any other critical care service time. Thank you for allowing us to participate in the care of this patient. Please refer to my attending physician's documentation for any further recommendations. (2) S/P PTCA (percutaneous transluminal coronary angioplasty): (3) S/P drug eluting coronary stent placement: (4) Polymorphic ventricular tachycardia: (5) History of cardioversion: (6) CAD (coronary artery disease): (7) HTN (hypertension): History of Present Illness Attending Physician: New Guerrero MD History of Present Illness Patient is a 38-year-old male with no reported significant past medical history who presented to the emergency department via EMS for evaluation of LEFT-sided chest pain. The patient reports that he was traveling from [place] to his home near [place] when he developed crushing LEFT-sided chest pain. He reports that he pulled over and went into a restaurant and asked them to contact EMS. Upon arrival in the emergency department, patient was assessed in the trauma bay. At some point, the patient went into a tachyarrhythmia of concern for polymorphic V. tach requiring cardioversion x1 back to normal sinus rhythm. Patient was subsequently taken to the catheterization suite where he underwent successful PTCA with GREG x1 to the proximal LAD. Patient was subsequently placed on amiodarone drip staff following bolus as well as nitroglycerin drips. On assessment in the ICU, the patient is awake, alert, and oriented. He reports complete resolve of chest pain. He feels drowsy from medications received intra-procedurally, however otherwise he reports feeling well. He specifically denies any chest pain, palpitations, shortness of breath, dizziness, lightheadedness, nausea, vomiting, abdominal pain, or extremity pain/weakness. Allergies Allergy/AdvReac Type Severity Reaction Status Date / Time Unable to Assess Allergy Verified 08/21/19 18:55 Home Medications Home Medications Medication Instructions Recorded Confirmed Type Unobtainable 08/21/19 08/21/19 History Patient History Social History Preferred Language: Georgian Communication Ability: Effective Court Transcriber Required: No Beliefs That Will Affect Care: None Current Living Situation: Spouse and Family Other Information That Helps Us Care for You: No Feels Safe at Home: Yes Safety Concerns: Feels Safe At This Time Smoking Status: Former smoker Smoking End Date: 2012 ; Hx Alcohol Use: Yes Alcohol type: beer Hx Substance Use: No Review of Systems Review of Systems: A complete 10 point review of systems was reviewed with the patient with pertinent positives and negatives as per history of present illness. All else were negative. Physical Exam Physical Exam: VITAL SIGNS - Vital signs and nursing notes were reviewed. GENERAL - 38-year-old male appearing his stated age who is in no acute distress. Communicates well with provider and answers questions appropriately. HEAD - NC/AT. EYES - PERRL with EOMI bilaterally. Sclera anicteric. Palpebral conjunctiva pink and moist with no injection noted. EARS - No deformities of external structures noted on gross examination bilaterally. No pain elicited with palpation of the tragus bilaterally. External auditory canals without discharge or otorrhea. Tympanic membranes pearly rangel without retraction or bulging. No fluid or purulent material visualized behind the TM. Handle of malleus, umbo, cone of light, pars tensa/flaccid all easily visualized. NOSE - Midline and without cyanosis. No epistaxis or purulent drainage noted. Septum midline without deviation or septal hematoma noted. MOUTH/OROPHARYNX - Without perioral cyanosis. Buccal mucosa pink and moist and without leukoplakia. Tongue midline with equal elevation of palate bilaterally. No tonsillar hypertrophy, erythema, or exudates noted. Good dentition noted. NECK - Neck with FROM. Supple to palpation without JVD. LUNGS - Chest wall symmetric without accessory muscle use, intercostals retractions, or central cyanosis. Normal vesicular breath sounds CTA B/L. No wheezes, rales, or rhonchi appreciated. CARDIAC - RRR with S1/S2. No murmur, rubs, or gallops appreciated. No reproducible tenderness to palpation appreciated over the anterior chest wall. ABDOMEN - Abdominal contour obese without pulsations or visible masses. BS normoactive all four quadrants. No tenderness, palpable masses, hepatosplenomegaly, or ascites noted. EXTREMITIES - No clubbing or peripheral cyanosis. No pretibial edema present. +3/5 radial and dorsalis pedis pulses palpated throughout. +5/5 strength noted in UE/LE bilaterally. NEUROLOGIC - Cranial nerves II through XII grossly intact. Sensory intact to light touch throughout. PSYCH - A&Ox3 and cooperates fully with examiner. Pt is very pleasant and interacts well with examiner. Results & Data ([facility]) Vital Signs (Past 12 Hours) Vital Signs Temp Pulse Pulse Resp BP BP Pulse Ox 08/21/19 19:50 36.9 C 85 20 169/130 H 96 08/21/19 18:55 174/126 H 97 08/21/19 18:50 92 H 27 H 164/117 H 98 08/21/19 18:45 82 19 157/112 H 100 08/21/19 18:42 85 20 168/102 H 99 08/21/19 18:40 85 21 160/109 H 100 08/21/19 18:38 73 22 195/111 H 98 08/21/19 18:33 84 20 186/135 H 98 08/21/19 18:26 99 08/21/19 18:25 37 C 85 20 186/135 H 98 Coding Level of Care Code Critical Care 1st 30-74 mins Diagnoses Admitted to intensive care unit Z78.9 S/P PTCA (percutaneous transluminal coronary angioplasty) Z98.61 S/P drug eluting coronary stent placement Z95.5 Polymorphic ventricular tachycardia I47.2 History of cardioversion Z98.890 CAD (coronary artery disease) I25.10 HTN (hypertension) I10 Time Spent (min) 35
[2019-08-21] MEDS: ATORVASTATIN 40 MG TAB PO SCH (21:12)
[2019-08-21] MEDS ORDERED: NITROGLYCERIN/D5W 100MCG/ML 250 ML IV SCH (21:15)
[2019-08-22] MEDS: AMIODARONE / D5W 360 MG/200 ML BAG IV SCH ×2 (00:46→13:06)
[2019-08-22 04:30] LABS: Basophils # (auto) 0.01 K/uL (0-0.2); Basophils % (auto) 0.1 %; Hematocrit (blood only) 42.5 % (42-52); Immature Granulocytes # (auto) 0.03 K/uL (0.00-0.02); Immature Granulocytes % (auto) 0.3 %; Lymphocytes # (auto) 2.16 K/uL (1.2-3.4); Lymphocytes % (auto) 19.2 %; Mean Corpuscular Hemoglobin 29.6 pg (25-34); Mean Corpuscular Hgb Conc 35.3 g/dL (32-36); Mean Platelet Volume 9.3 fL (7.4-10.4); Monocytes # (auto) 0.44 K/uL (0.11-0.59); Monocytes % (auto) 3.9 %; Neutrophils # (auto) 8.62 K/uL (1.4-6.5); Neutrophils % (auto) 76.5 %; Platelet Count 314 K/uL (130-400); RDW Coefficient of Variation 13.3 % (11.5-14.5); RDW Standard Deviation 40.3 fL (36.4-46.3); Red Blood Count 5.06 M/uL (4.7-6.1); White Blood Count 11.26 K/uL (4.8-10.8)
[2019-08-22 05:33] LABS: Magnesium 1.9 mg/dl (1.8-2.4); Phosphorus 4.5 mg/dl (2.5-4.9); Troponin I 88.9 ng/ml (0-0.045)
[2019-08-22 06:15] LABS: BUN Creatinine Ratio 13.1 (10-20); Calcium 8.6 mg/dl (8.5-10.1); Creatinine Clr Calc Pharmacy 97.7 ml/min; Est GFR (African American) 93.7; Est GFR (Non-African American) 80.9; Potassium 4.4 mmol/L (3.5-5.1)
[2019-08-22 07:10] LABS: Estimated Average Glucose 126 mg/dl
--- NOTE | 2019-08-22 07:22 | XRay Report ---
XR chest 1V portable CLINICAL HISTORY: STEMI COMPARISON STUDY: 08/21/2019 FINDINGS: The heart is the upper limits of normal in size. There is stable mild hilar prominence. The re is no overt failure. There is no focal pulmonary consolidation. There are atelectatic changes pres ent at both lung bases.[ IMPRESSION: 1. Resolution of the previously described pulmonary vascular congestion 2. Basilar opacities, likely atelectatic ACT 112: Negative or not required by law. Electronically signed by: Miguel Alvarez M.D. 08/22/2019 7:21 AM
--- NOTE | 2019-08-22 07:42 | Critical Care Progress Note ---
Date of Service August 22, 2019 Assessment & Plan (1) Admitted to intensive care unit: Reason Critically Ill: Mr. Koehler is a 38-year-old male with acute anterior STEMI status post PTCA with GREG x1 to the proximal LAD. He initially presented with episode of polymorphic ventricular tachyarrhythmia requiring cardioversion x1 with conversion to normal sinus rhythm. Requiring close hemodynamic monitoring status post intervention. NEURO - CAM ICU: NEGATIVE CARDIAC/VASCULAR - Acute anterior STEMI status post PTCA with GREG x1 to the proximal LAD: Complicated by transient run of symptomatic polymorphic ventricular tachyarrhythmia which did convert status post cardioversion x1. Currently on amiodarone drip - transition to oral amiodarone after 24h Cardiology consult appreciated Titrate down nitroglycerin drip as tolerated. ECHO - LVEF of 40-45% with mild anterior, anteroseptal and septal hypokinesis, as well as apical akinesis Secondary preventative medications started, including aspirin, ticagrelor, atorvastatin, metoprolol and lisinopril EKG: NSR@85bpm. ST depression inferior w/ ST elevations anteriorly. QTc 440ms. Monitor on telemetry. RESPIRATORY - Previous smoker approximately 7 years ago. Saturating well on room air at this time. GI/NUTRITION - Heart healthy diet d/c GI prophylaxis RENAL/LYTES - No electrolyte abnormalities noted - No concerns at this time. ENDO - No history of diabetes or thyroid disease. HbA1c 6% BSGs per unit protocol. ISS --> gtt per unit policy. HEME - Monitor H&H. ID - No concerns for infection at this time LINES/IV ACCESS - PIVs x2 DVT PROPHYLAXIS - Early ambulation. SCDs DISPOSITION - If patient remains stable, can downgrade to telemetry this afternoon Thank you for allowing us to participate in the care of this patient. Please refer to my attending physician's documentation for any further recommendations. (2) Acute anterior wall MD: (3) Ventricular fibrillation: (4) Chest pain: (5) HTN (hypertension): (6) CAD (coronary artery disease): (7) History of cardioversion: (8) Polymorphic ventricular tachycardia: (9) S/P drug eluting coronary stent placement: (10) S/P PTCA (percutaneous transluminal coronary angioplasty): Supervising Physician Co-Signing Physician Notes Dr. Locke was resident physician during care of patient. I separately evaluated patient for ozuna portions of the history and the exam. I was present during the critical portion of medical decision making, and I discussed the case with the resident. I generally agree with the findings and plan. Patient was discussed on multidisciplinary rounds and I also discussed the patient with Dr. Sanford. Able to stop amiodarone today, plus minus additional oral amiodarone, as he does not have continued ectopy we can discontinue this. Starting lisinopril. Stable for downgrade out of the ICU Subjective Mr. Koehler reports improvement in his chest pain, stating it has decreased to 3/10 in severity. He denies SOB, palpitations, or pain over his catheterization site. Review of Systems Constitutional: no fever and no chills Cardiovascular: + chest pain; no palpitations, no edema and no calf pain Gastrointestinal: no abdominal pain, no nausea and no vomiting Physical Exam Constitutional: WD/WN, vitals as above Respiratory: normal respiratory effort, lungs clear to auscultation Cardiovascular: RRR, no murmur, no edema Gastrointestinal (Abdomen): normal bowel sounds, soft, nontender, no hepatosplenomegaly Skin: no rashes, warm and dry Psychiatric: A+Ox3, euthymic affect Results & Data Vital Signs (Past 12 Hours) Vital Signs Temp Pulse Pulse Resp BP BP BP 08/22/19 06:00 77 15 145/100 H 08/22/19 05:00 72 14 141/88 H 08/22/19 04:00 36.9 C 72 15 145/95 H 08/22/19 03:00 68 14 124/82 08/22/19 01:34 72 14 134/93 08/22/19 00:34 36.7 C 75 14 122/81 08/21/19 23:34 72 16 139/100 08/21/19 22:34 68 13 108/76 08/21/19 21:34 85 16 148/113 H 08/21/19 21:04 83 16 170/124 H 08/21/19 20:34 81 14 179/133 H 08/21/19 20:19 85 20 158/106 H 08/21/19 20:04 85 18 157/129 H 08/21/19 19:50 36.9 C 85 20 169/130 H 08/21/19 19:49 36.9 C 85 14 169/130 H Pulse Ox 08/22/19 06:00 97 02/10/20 05:00 94 08/22/19 04:00 95 08/22/19 03:00 98 08/22/19 01:34 98 08/22/19 00:34 96 08/21/19 23:34 95 08/21/19 22:34 96 08/21/19 21:34 94 08/21/19 21:04 94 08/21/19 20:34 95 08/21/19 20:19 93 08/21/19 20:04 97 08/21/19 19:50 96 08/21/19 19:49 97 Resident Activity Tracking Resident Involvement: Resident Care Provided Care Provided: Adult Hospital Medicine (1) Chest pain Chest pain type: unspecified Qualified Code(s): R07.9 - Chest pain, unspecified
[2019-08-22] MEDS: METOPROLOL TARTRATE 25 MG TAB PO SCH (07:53)
[2019-08-22] MEDS: ASPIRIN 81 MG ECTAB PO SCH (07:54)
[2019-08-22] MEDS: FAMOTIDINE 20 MG in SYRINGE 3 ML IV SCH (07:55)
[2019-08-22] MEDS: TICAGRELOR 90 MG TAB PO SCH ×2 (07:57→20:53)
[2019-08-22] MEDS: ATORVASTATIN 40 MG TAB PO SCH (08:54)
--- NOTE | 2019-08-22 09:17 | XCELERA ---
[id number] [id number]
--- NOTE | 2019-08-22 09:32 | Electrocardiogram Report ---
Test Reason : Blood Pressure : / mmHG Vent. Rate : 083 BPM Atrial Rate : 083 BPM P-R Int : 168 ms QRS Dur : 072 ms QT Int : 376 ms P-R-T Axes : 043 033 -24 degrees QTc Int : 441 ms Sinus rhythm with sinus arrhythmia with occasional Premature ventricular complexes Anteroseptal infarct Acute T wave abnormality, consider inferior ischemia ACUTE OH / STEMI Abnormal ECG No previous ECGs available Confirmed by Jake Hollingsworth ([id number]) on 08/22/2019 9:31:56 AM Referred By: REFERRED SELF Confirmed By:Jake Hollingsworth
--- NOTE | 2019-08-22 09:33 | Electrocardiogram Report ---
Test Reason : Blood Pressure : / mmHG Vent. Rate : 085 BPM Atrial Rate : 085 BPM P-R Int : 174 ms QRS Dur : 072 ms QT Int : 370 ms P-R-T Axes : 040 021 -28 degrees QTc Int : 440 ms Normal sinus rhythm Anteroseptal infarct (cited on or before 21-AUG-2019) T wave abnormality, consider inferior ischemia ACUTE UT / STEMI Abnormal ECG When compared with ECG of 21-AUG-2019 18:30, (unconfirmed) Premature ventricular complexes are no longer Present Serial changes of Anteroseptal infarct Present Confirmed by Jake Hollingsworth ([id number]) on 08/22/2019 9:32:56 AM Referred By: REFERRED SELF Confirmed By:Jake Hollingsworth
--- NOTE | 2019-08-22 09:38 | Electrocardiogram Report ---
Test Reason : Blood Pressure : / mmHG Vent. Rate : 082 BPM Atrial Rate : 082 BPM P-R Int : 206 ms QRS Dur : 080 ms QT Int : 372 ms P-R-T Axes : 045 049 052 degrees QTc Int : 434 ms Normal sinus rhythm Septal infarct (cited on or before 21-AUG-2019) Abnormal ECG When compared with ECG of 21-AUG-2019 18:48, (unconfirmed) Serial changes of evolving Septal infarct Present Confirmed by Jake Hollingsworth ([id number]) on 08/22/2019 9:37:36 AM Referred By: REFERRED SELF Confirmed By:Jake Hollingsworth
--- NOTE | 2019-08-22 09:50 | Electrocardiogram Report ---
Test Reason : Blood Pressure : / mmHG Vent. Rate : 062 BPM Atrial Rate : 062 BPM P-R Int : 186 ms QRS Dur : 082 ms QT Int : 444 ms P-R-T Axes : 045 082 072 degrees QTc Int : 450 ms Normal sinus rhythm Septal infarct (cited on or before 21-AUG-2019) Abnormal ECG When compared with ECG of 21-AUG-2019 19:58, (unconfirmed) T wave inversion now evident in Anterior leads Confirmed by Jake Hollingsworth ([id number]) on 08/22/2019 9:50:10 AM Referred By: REFERRED SELF Confirmed By:Jake Hollingsworth
[2019-08-22] MEDS: lisinopriL 10 MG TAB PO SCH (12:28)
--- NOTE | 2019-08-22 16:32 | Hospitalist Progress Note ---
Date of Service August 22, 2019 Assessment & Plan (1) Acute anterior wall FL: 38yo gentleman with PMhx significant for HTN noncomplinat with medication who presented with an anterior wall FL. STEMI -pt with chest pain -EKG with polymorphic v tach on admission -post PCI with 100% occlusion of LAD with stent placement. -Echo: EF40-45% with LAD wall motion abnormalities -continue aspirin, brilinta 90mg, metoprolol 50mg BID, lipitor 40mg, lisinopril 10mg and amiodarone. -continue tele monitoring HTN -continue lisinopril 10mg FEN/GI: Heart healthy diet CODE STATUS: Full DVT proph: On brilinta, aspirin Dispo: PCU with tele Admission and Anticipated Discharge Date Admission Date: August 21, 2019 Supervising Physician Co-Signing Physician Notes Resident Physician Supervision Note: I independently interviewed and examined the patient and verified the ozuna history and physical, reviewed labs and image studies, discussed the case with the resident Dr. Cervantes and agree with the findings and care plan. Subjective Pt seen this AM. States he feels better but still having periodic chest pain. Denies SOB. N/V still present. Denies any headaches, changes to vision, abd pain, diarrhea or constipation, or swelling in hands or feet. Review of Systems Review of Systems: All systems reviewed & are unremarkable except as noted in Subjective Physical Exam Physical Exam: General: Alert, oriented. Skin: No noted rashes or bruises Psych: Appropriate mood and affect Neuro: No gross deficits HEENT: NC/AT, Chest: Nontender to palpation. CV: RRR, Normal s1, s2. No murmurs appreciated Resp: Breath sounds clear bilaterally, no increased effort of breathing. No crackles/rhonchi/rales. Abdomen: Soft, nontender, nondistended. No guarding. No organomegaly appreciated. Extremities: No edema in lower extremities bilaterally. Results & Data ([facility]) Vital Signs (Past 12 Hours) Vital Signs Temp Pulse Resp BP Pulse Ox 08/22/19 14:20 74 19 96 08/22/19 14:00 75 13 141/87 H 94 08/22/19 13:52 71 20 132/87 95 08/22/19 13:50 70 21 95 08/22/19 13:42 73 19 127/88 96 08/22/19 13:00 81 14 127/88 95 08/22/19 12:30 36.6 C 74 21 93 08/22/19 12:20 67 18 94 08/22/19 12:10 67 18 93 08/22/19 12:01 64 17 93 08/22/19 12:00 66 17 155/106 H 95 08/22/19 11:51 66 11 L 95 08/22/19 11:40 61 18 95 08/22/19 11:30 76 21 95 08/22/19 11:20 73 28 H 93 08/22/19 11:10 82 20 94 08/22/19 11:01 73 19 94 08/22/19 11:00 77 9 L 110/68 93 08/22/19 10:50 67 19 93 08/22/19 10:40 71 16 95 08/22/19 10:30 65 17 93 08/22/19 10:20 71 17 95 08/22/19 10:10 71 17 94 08/22/19 10:01 82 16 92 08/22/19 10:00 70 14 149/106 H 94 08/22/19 09:50 69 19 93 08/22/19 09:40 77 14 93 08/22/19 09:30 69 17 94 08/22/19 09:20 75 19 94 08/22/19 09:10 74 15 96 08/22/19 09:02 73 25 H 94 08/22/19 09:01 82 25 H 131/74 94 08/22/19 09:00 70 20 93 08/22/19 08:30 78 16 94 08/22/19 08:01 70 20 141/98 H 96 08/22/19 08:00 37.1 C 77 22 96 08/22/19 07:30 66 17 97 08/22/19 07:01 66 17 94 08/22/19 06:00 77 15 145/100 H 97 08/22/19 05:00 72 14 141/88 H 94 Resident Activity Tracking Resident Involvement: Resident Care Provided Care Provided: Adult Hospital Medicine
--- NOTE | 2019-08-22 17:02 | Cardiology Progress Note ---
Date of Service August 22, 2019 Assessment & Plan (1) Acute anterior wall IA: --Post primary PCI with single drug-eluting stent to proximal LAD 2. VF cardiac arrest in ED prior to PCI 3. No significant non-culprit vessel CAD 4. Ischemic cardiomyopathy, EF 40 to 45% with LAD distribution wall motion abnormality 5. Hypertension 6. Dyslipidemia Patient chest pain-free. Hemodynamically and electrically stable. Mild to moderate LV dysfunction on echo. Well-perfused with no signs of heart failure on exam. No apparent access or complications. Post procedure labs stable. Continue DAPT with aspirin, Brilinta Titrate beta-bobby, increase metoprolol to 50 mg twice daily Can discontinue IV amiodarone. Ok with PO amiodarone. Can discontinue IV nitroglycerin infusion Continue current lisinopril OK with transfer to telemetry later in day. Admission and Anticipated Discharge Date Admission Date: August 21, 2019 Subjective No recurrent chest pain this morning. Discomfort still at right groin access site No other new complaints. Telemetry reviewedno additional ventricular ectopy Review of Systems Review of Systems: All systems reviewed & are unremarkable except as noted in HPI & below Physical Exam Physical Exam: General: Comfortable, no acute distress HEENT: Sclerae anicteric, mucous membranes moist Lungs: Clear to auscultation bilaterally, no rhonchi or wheezes Cardiac: Regular rate and rhythm, no murmurs. Abdomen: Soft, nontender Extremities: Warm, well perfused, no edema. 2+ radial pulses. Tender right PRECISION FARMING COORDINATOR access site, 2+ pulse, DP/PT pulses intact Skin: No rashes or lesions. Neuro: Nonfocal Psych: Alert orient x3, normal affect and mood Results & Data ([facility]) Vital Signs (Past 12 Hours) Vital Signs Temp Pulse Resp BP Pulse Ox 08/22/19 16:00 74 08/22/19 14:20 74 19 96 08/22/19 14:00 75 13 141/87 H 94 08/22/19 13:52 71 20 132/87 95 08/22/19 13:50 70 21 95 08/22/19 13:42 73 19 127/88 96 08/22/19 13:00 81 14 127/88 95 08/22/19 12:30 97.9 F 74 21 93 08/22/19 12:20 67 18 94 08/22/19 12:10 67 18 93 08/22/19 12:01 64 17 93 08/22/19 12:00 66 17 155/106 H 95 08/22/19 11:51 66 11 L 95 08/22/19 11:40 61 18 95 08/22/19 11:30 76 21 95 08/22/19 11:20 73 28 H 93 08/22/19 11:10 82 20 94 08/22/19 11:01 73 19 94 08/22/19 11:00 77 9 L 110/68 93 08/22/19 10:50 67 19 93 08/22/19 10:40 71 16 95 08/22/19 10:30 65 17 93 08/22/19 10:20 71 17 95 08/22/19 10:10 71 17 94 08/22/19 10:01 82 16 92 08/22/19 10:00 70 14 149/106 H 94 08/22/19 09:50 69 19 93 08/22/19 09:40 77 14 93 08/22/19 09:30 69 17 94 08/22/19 09:20 75 19 94 08/22/19 09:10 74 15 96 08/22/19 09:02 73 25 H 94 08/22/19 09:01 82 25 H 131/74 94 08/22/19 09:00 70 20 93 08/22/19 08:30 78 16 94 08/22/19 08:01 70 20 141/98 H 96 08/22/19 08:00 98.8 F 77 22 96 08/22/19 07:30 66 17 97 08/22/19 07:01 66 17 94 08/22/19 06:00 77 15 145/100 H 97 08/22/19 05:00 72 14 141/88 H 94 PG Care Time/CCT Total # of Minutes Spent Total Time Spent with Patient: Total time spent is greater than 50% in coordination of care (as documented) at patient's floor/unit and/or counseling patient: Coding Level of Care Code 03744 Subseq Hosp Care Lvl 3 Diagnoses Acute anterior wall IA I21.09
--- NOTE | 2019-08-22 18:07 | Billing Data ---
Date of Service August 22, 2019 Coding Level of Care Code 91273 Subseq Hosp Care Lvl 3
[2019-08-22 20:27] LABS: BUN Creatinine Ratio 11.3 (10-20); Calcium 9.1 mg/dl (8.5-10.1); Creatinine Clr Calc Pharmacy 88.4 ml/min; Est GFR (Non-African American) 71.6
[2019-08-22 20:28] LABS: Potassium 3.6 mmol/L (3.5-5.1)
[2019-08-22] MEDS: METOPROLOL TARTRATE 50 MG TAB PO SCH (20:53)
--- NOTE | 2019-08-23 07:20 | XRay Report ---
XR chest 1V portable CLINICAL HISTORY: STEMI COMPARISON STUDY: Chest radiograph August 22, 2019. FINDINGS: Lung volumes are mildly diminished. There is no pneumothorax or pleural effusion. Linear ri ght perihilar and left basilar opacity is noted. This favors atelectasis. There may be mild right bas ilar opacity is well. There is no evidence for pulmonary edema. Cardiac size is within normal limits. IMPRESSION: 1. Linear bilateral opacities which favor atelectasis. 2. No evidence for pulmonary edema. ACT 112: Negative or not required by law. Electronically signed by: Gerardo Pastor M.D. 08/23/2019 7:19 AM
[2019-08-23 07:24] LABS: Basophils # (auto) 0.01 K/uL (0-0.2); Basophils % (auto) 0.1 %; Eosinophils # (auto) 0.02 K/uL (0-0.5); Eosinophils % (auto) 0.2 %; Hematocrit (blood only) 44.3 % (42-52); Hemoglobin 15.2 g/dL (14.0-18.0); Immature Granulocytes # (auto) 0.02 K/uL (0.00-0.02); Immature Granulocytes % (auto) 0.2 %; Lymphocytes # (auto) 2.54 K/uL (1.2-3.4); Lymphocytes % (auto) 26.9 %; Mean Corpuscular Hgb Conc 34.3 g/dL (32-36); Mean Corpuscular Volume 84.4 fL (80-100); Mean Platelet Volume 9.8 fL (7.4-10.4); Monocytes % (auto) 10.6 %; Neutrophils # (auto) 5.85 K/uL (1.4-6.5); Platelet Count 265 K/uL (130-400); RDW Coefficient of Variation 13.3 % (11.5-14.5); RDW Standard Deviation 40.5 fL (36.4-46.3); Red Blood Count 5.25 M/uL (4.7-6.1); White Blood Count 9.44 K/uL (4.8-10.8)
[2019-08-23] MEDS: ASPIRIN 81 MG ECTAB PO SCH (08:06)
[2019-08-23] MEDS: METOPROLOL TARTRATE 50 MG TAB PO SCH ×2 (08:06→19:36)
[2019-08-23] MEDS: lisinopriL 10 MG TAB PO SCH (08:06)
[2019-08-23] MEDS: AMIODARONE 200 MG TAB PO SCH (08:06)
[2019-08-23] MEDS: ATORVASTATIN 40 MG TAB PO SCH (09:57)
[2019-08-23] MEDS: TICAGRELOR 90 MG TAB PO SCH ×2 (09:58→19:36)
--- NOTE | 2019-08-23 12:36 | Cardiology Progress Note ---
Date of Service August 23, 2019 Assessment & Plan (1) Acute anterior wall MT: --Post primary PCI with single drug-eluting stent to proximal LAD 2. VF cardiac arrest in ED prior to PCI 3. No significant non-culprit vessel CAD 4. Ischemic cardiomyopathy, EF 40 to 45% with LAD distribution wall motion abnormality 5. Hypertension 6. Dyslipidemia Patient doing well today. Has had no recurrent chest pain and has remained hemodynamically, electrically stable. From a cardiac standpoint okay with discharge today. Home on DAPT with aspirin, Brilinta. Continue current metoprolol, lisinopril. Plan for p.o. amiodarone for 1 week post discharge. Continue high intensity statin. [facility] Vincent, Dr. Fontenot. Admission and Anticipated Discharge Date Admission Date: August 21, 2019 Subjective Feeling better today. Denies any chest pain. No significant shortness of breath. Telemetry reviewedno events. Review of Systems Review of Systems: All systems reviewed & are unremarkable except as noted in HPI & below Physical Exam Physical Exam: General: Comfortable, no acute distress HEENT: Sclerae anicteric, mucous membranes moist Lungs: Clear to auscultation bilaterally Cardiac: Regular rate and rhythm, no murmurs Abdomen: Soft, nontender Extremities: Warm, well perfused, no edema. 2+ radial pulses. Right EGG AND SPICE MIXER access site tender, pulse intact, no hematoma. Skin: No rashes or lesions. Neuro: Nonfocal Psych: Alert orient x3, normal affect and mood Results & Data ([facility]) Vital Signs (Past 12 Hours) Vital Signs Temp Pulse Pulse Pulse Resp BP Pulse Ox 08/23/19 11:08 98.8 F 69 18 99/62 L 96 08/23/19 08:00 67 08/23/19 07:15 97.9 F 67 18 111/76 96 08/23/19 03:37 98.6 F 79 18 108/65 96 PG Care Time/CCT Total # of Minutes Spent Total Time Spent with Patient: Total time spent is greater than 50% in coordination of care (as documented) at patient's floor/unit and/or counseling patient: Coding Level of Care Code 65202 Subseq Hosp Care Lvl 3 Diagnoses Acute anterior wall MT I21.09
--- NOTE | 2019-08-23 13:23 | Hospitalist Progress Note ---
Date of Service August 23, 2019 Assessment & Plan (1) Acute anterior wall [place]: 38yo gentleman with PMhx significant for HTN who presented with an anterior wall MA. STEMI -pt with chest pain while driving from [place] to [place] -EKG with polymorphic v tach on admission -post PCI with 100% occlusion of LAD with stent placement. -Echo: EF40-45% with LAD wall motion abnormalities -continue aspirin, brilinta 90mg, metoprolol 50mg BID, lipitor 40mg, lisinopril 10mg and amiodarone 200mg. -pt concerned about functional ability to drive home so will get pt/ot input -continue tele monitoring HTN -continue lisinopril 10mg FEN/GI: Heart healthy diet CODE STATUS: Full DVT proph: On brilinta, aspirin Dispo: PCU with tele Admission and Anticipated Discharge Date Admission Date: August 21, 2019 Supervising Physician Co-Signing Physician Notes Resident Physician Supervision Note: I independently interviewed and examined the patient and verified the ozuna history and physical, reviewed labs and image studies, discussed the case with the resident Dr. Cervantes and agree with the findings and care plan. Subjective Pt seen this AM. States he is feeling much better, denies any further episodes of chest pain or SOB. Denies any headache, changes to vision, cough, runny nose, sore throat, palpitations, abdominal pain, diarrhea or constipation, swelling in hands or feet or numbness or tingling anywhere. Review of Systems Review of Systems: All systems reviewed & are unremarkable except as noted in Subjective Physical Exam Physical Exam: General: Alert, oriented. No acute distress, laying in bed. Skin: No noted rashes or bruises Psych: Appropriate mood and affect Neuro: No gross deficits HEENT: NC/AT, PERRLA, EOMI, oropharynx moist. Chest: Nontender to palpation. CV: RRR, Normal s1, s2. No murmurs appreciated Resp: Breath sounds clear bilaterally, no increased effort of breathing. No crackles/rhonchi/rales. Abdomen: Soft, nontender, nondistended. No guarding. No organomegaly appreciated. Extremities: No edema in lower extremities bilaterally. Results & Data ([facility]) Vital Signs (Past 12 Hours) Vital Signs Temp Pulse Pulse Pulse Resp BP Pulse Ox 08/23/19 11:21 68 02/11/20 11:08 37.1 C 69 18 99/62 L 96 08/23/19 08:00 67 08/23/19 07:15 36.6 C 67 18 111/76 96 08/23/19 03:37 37.0 C 79 18 108/65 96 Resident Activity Tracking Resident Involvement: Resident Care Provided Care Provided: Adult [facility] Medicine
--- NOTE | 2019-08-23 15:01 | Electrocardiogram Report ---
Test Reason : Blood Pressure : / mmHG Vent. Rate : 066 BPM Atrial Rate : 066 BPM P-R Int : 180 ms QRS Dur : 082 ms QT Int : 510 ms P-R-T Axes : 036 042 093 degrees QTc Int : 534 ms Normal sinus rhythm Septal infarct (cited on or before 21-AUG-2019) T wave abnormality, consider anterolateral ischemia Prolonged QT Abnormal ECG When compared with ECG of 22-AUG-2019 06:56, Serial changes of Septal infarct Present Confirmed by Jake Hollingsworth ([id number]) on 08/23/2019 3:01:05 PM Referred By: REFERRED SELF Confirmed By:Jake Hollingsworth
[2019-08-23] MEDS ORDERED: ACETAMINOPHEN 500 MG TAB PO PRN (16:24)
[2019-08-23] MEDS: DOCUSATE SODIUM 100 MG CAP PO SCH (17:04)
[2019-08-23 21:02] LABS: BUN Creatinine Ratio 17.5 (10-20); Calcium 8.9 mg/dl (8.5-10.1); Creatinine Clr Calc Pharmacy 77.8 ml/min; Est GFR (African American) 71.1; Est GFR (Non-African American) 61.3; Potassium 3.2 mmol/L (3.5-5.1)
--- NOTE | 2019-08-24 06:59 | Discharge Summary ---
Date of Service August 24, 2019 Admission HPI Per Admitting Provider The patient is a 38-year-old -Thai male with a past medical history including hypertension, who presented to the emergency department after been found in the outpatient setting to have severe chest pain. He was also noted to have an abnormal heart rhythm, and was started on amiodarone. Upon arrival in the emergency department, the amiodarone was continued, and he did undergo successful cardioversion for polymorphic V. tach/torsades. He was then taken urgently to the [facility], where he found to have a complete proximal LAD occlusion, which was opened with a single drug-eluting stent. Patient was then transferred to the ICU for further treatment. Admission Exam Per Admitting Provider The patient is awake, alert and oriented 3, well developed and well nourished, normocephalic and atraumatic, lying in bed and post cath procedure in no acute distress. HEENT--PERRL, EOMI, mucous membranes and oropharynx normal. Neck--supple. No JVD. No bruits. Thyroid normal, trachea midline, no adenopathy. Heart--normal S1 and S2. No murmurs, rubs or gallops. Lungs--clear bilaterally, no respiratory distress, no accessory muscle use. Abdomen--normal bowel sounds and soft. Nontender. Nondistended. Extremities--no cyanosis or clubbing. No edema. There are good distal pulses b/l. Dermatologic--normal skin turgor, normal color, no abnormal lymph nodes, no rash. Neurologic--cranial nerves II through XII grossly intact. Rheumatologic--normal range of motion. Psychiatric--normal affect. Principal Diagnosis Myocardial Infarction Discharge Exam General: Alert, oriented. No acute distress, laying in bed. Skin: No noted rashes or bruises Psych: Appropriate mood and affect Neuro: No gross deficits HEENT: NC/AT, PERRLA, EOMI, oropharynx moist. Chest: Nontender to palpation. CV: RRR, Normal s1, s2. No murmurs appreciated Resp: Breath sounds clear bilaterally with scattered wheezes noted in left apex, no increased effort of breathing. No crackles/rhonchi/rales. Abdomen: Soft, nontender, nondistended. No guarding. No organomegaly appreciated. Extremities: No edema in lower extremities bilaterally. Discharge Data Allergies Allergy/AdvReac Type Severity Reaction Status Date / Time Unable to Assess Allergy Verified 08/21/19 18:55 Consultations 08/21/19 19:02 Consult Cardiology Stat 08/21/19 19:52 Consult Cardiac Rehabilitation Routine 08/21/19 20:05 Consult Case Management - Discharge Planning Routine Consult Blanket Winder Helper Routine 08/22/19 09:47 Consult Cardiology Routine 08/23/19 11:49 Consult Case Management - Discharge Planning Routine Procedures Performed Operation Date: 08/21/19 18:45 Actual Procedures p Aspiration/PCI w/GREG for Stemi - Nishant Fernando MD s Cineradiography w/Routine Exam - Nishant Fernando MD s Cath, Left with Cors and Vent - Nishant Fernando MD Ordered Studies 08/21/19 18:34 CL Cath Imgs for PACS use only Stat Hospital Course (1) Acute anterior wall NV: 38yo gentleman with PMhx significant for HTN who presented with an anterior wall NV. Pt admitted on aug 21, 2019 and discharged on Aug 24, 2019. STEMI -pt with chest pain while driving from [place] to [place] -EKG with polymorphic v tach on admission -post PCI with 100% occlusion of LAD with stent placement. -Echo: EF40-45% with LAD wall motion abnormalities -continue aspirin 81mg, brilinta 90mg, metoprolol 50mg BID, lipitor 40mg, lisinopril 10mg and amiodarone 200mg. -pt/ot: pt with no mobility concerns -strongly counseled on importance of adhering to above medication regimen and following up with PCP and card boxer in [place]. HTN -continue lisinopril 10mg Total Time Total Time Spent Total Time Spent (In Minutes): Se attending attestation Discharge Plan Discharge Items Patient Disposition: Home - Self-Care Reason For Visit: STEMI LAD OCCLUSION WITH GREG Discharge Diagnosis: Myocardial Infarction Activity: Per Instructions section Non-emergency contact: Primary Care Provider and Federal Judge Call non-emergency contact if: your symptoms worsen Follow-up/Referrals: Dr. Jay Ashley [Other] - 08/26/19 11:00 am (Please, follow up at Dr. Jay Ashley's office on ThursdayAugust 26 at 11:00 am. *The office is located at [address] [place] [address]. If you need to change this appointment, call the office at [phone]. DR. ASHLEY AND HIS STAFF WILL ARRANGE A FOLLOW UP APPOINTMENT WITH A TRAINMASTER.) Diet: Heart Healthy Addtl Attending Provider Instructions: You were admitted because you had a heart attack. It is very important that you take your medications as directed as they will help prevent further damage to your heart and also protect you from another heart attack. -Continue to take the following medications every day until you followup with your primary care doctor and card boxer in [place]. You are being discharged with a 30 day supply: -Aspirin 81mg once a day -Ticagrelor 90mg two times a day -Atorvastatin 40mg once a day -Amiodarone 200mg once a day -Lisinopril 10mg once a day -metoprolol tartrate 50mg twice a day. -Please followup with your primary care doctor in the next few days for renewals of your medications and to ensure that you are doing ok after discharge. They, along with your card boxer can also give you clearance for return to work. -Please also followup with your card boxer. -Please also follow the dietary recommendations of the e business consultant. It was a pleasure taking care of you during your stay here! Pending Studies at Discharge: No Stand-Alone Forms: My [facility], Work/School Release (Inpt), Smoking Cessation Medications and DC Order Prescriptions: New Brilinta 90 mg Tablet 90 mg PO BID 30 Days Qty: 60 RF: 0 atorvastatin 40 mg Tablet 40 mg PO QAM Qty: 30 RF: 0 amiodarone 200 mg Tablet 200 mg PO QAM Qty: 30 RF: 0 aspirin [Ecotrin Low Strength] 81 mg Tablet,Delayed Release (Dr/Ec) 81 mg PO QAM Qty: 30 RF: 0 lisinopril 10 mg Tablet 10 mg PO QAM Qty: 30 RF: 0 metoprolol tartrate 50 mg Tablet 50 mg PO BID Qty: 30 RF: 0 No Action Unobtainable RF: 0 Discharge Orders: Discharge Order (Routine); Ordered 08/24/19 Ordered By: La Nena Alcala/Other Patient Handouts: Prediabetes, Discharge Instructions for Heart Attack, A1C Admission Data Admit Date/Time: 08/21/19 20:05 Attending Provider: Tammy Lopez Admit Provider: New Guerrero Primary Care Provider: Jay Ashley Other Providers: New Guerrero ; Nishant Fernando ; Jose Grey ; Jake Hollingsworth Other Interventions: Discharge Summary Assessment (RN) Last Done: 08/24/19 10:39 Teach: Cardiac Cath Educ Record Last Done: 08/24/19 10:43 DC Date/Time DO NOT enter until pt leaves facility: 08/24/19 12:35 Supervising Physician Co-Signing Physician Notes Resident Physician Supervision Note: I independently interviewed and examined the patient and verified the ozuna history and physical, reviewed labs and image studies, discussed the case with the resident Dr. Cervantes and agree with the findings and care plan. Resident Activity Tracking Resident Involvement: Resident Care Provided Care Provided: Adult Hospital Medicine
[2019-08-24 07:11] LABS: Basophils # (auto) 0.01 K/uL (0-0.2); Basophils % (auto) 0.1 %; Eosinophils # (auto) 0.04 K/uL (0-0.5); Eosinophils % (auto) 0.4 %; Hematocrit (blood only) 42.8 % (42-52); Hemoglobin 15.3 g/dL (14.0-18.0); Immature Granulocytes # (auto) 0.03 K/uL (0.00-0.02); Immature Granulocytes % (auto) 0.3 %; Lymphocytes # (auto) 3.23 K/uL (1.2-3.4); Lymphocytes % (auto) 33.5 %; Mean Corpuscular Hemoglobin 29.6 pg (25-34); Mean Corpuscular Hgb Conc 35.7 g/dL (32-36); Mean Corpuscular Volume 82.8 fL (80-100); Monocytes # (auto) 0.73 K/uL (0.11-0.59); Monocytes % (auto) 7.6 %; Neutrophils # (auto) 5.61 K/uL (1.4-6.5); Neutrophils % (auto) 58.1 %; Platelet Count 268 K/uL (130-400); RDW Coefficient of Variation 12.9 % (11.5-14.5); RDW Standard Deviation 39.2 fL (36.4-46.3); Red Blood Count 5.17 M/uL (4.7-6.1); White Blood Count 9.65 K/uL (4.8-10.8)
[2019-08-24] MEDS ORDERED: POTASSIUM CHLORIDE 20 MEQ TABCR PO ONE (07:15)
[2019-08-24] MEDS ORDERED: SODIUM CHLORIDE 0.9% 1000ML 1,000 ML IV SCH (07:15)
[2019-08-24] MEDS: DOCUSATE SODIUM 100 MG CAP PO SCH (07:34)
[2019-08-24] MEDS: TICAGRELOR 90 MG TAB PO SCH (07:34)
[2019-08-24] MEDS: METOPROLOL TARTRATE 50 MG TAB PO SCH (07:34)
[2019-08-24] MEDS: lisinopriL 10 MG TAB PO SCH (07:34)
[2019-08-24] MEDS: AMIODARONE 200 MG TAB PO SCH (07:34)
[2019-08-24] MEDS: ASPIRIN 81 MG ECTAB PO SCH (07:35)
[2019-08-24 07:44] LABS: BUN Creatinine Ratio 15.5 (10-20); Calcium 9.1 mg/dl (8.5-10.1); Creatinine Clr Calc Pharmacy 79.6 ml/min; Est GFR (Non-African American) 62.9
[2019-08-24 07:45] LABS: Potassium 3.7 mmol/L (3.5-5.1)
[2019-08-24] MEDS: ATORVASTATIN 40 MG TAB PO SCH (11:38)
[2019-08-24] MEDS ORDERED: SODIUM CHLORIDE 0.9% 10ML FLUSH IV ONE (12:34)
[2019-08-24] MEDS ORDERED: ATROPINE SULFATE 0.1 MG/ML 10ML SYR IV ONE (12:34)
--- NOTE | 2019-08-24 12:44 | Electrocardiogram Report ---
Test Reason : Blood Pressure : / mmHG Vent. Rate : 069 BPM Atrial Rate : 069 BPM P-R Int : 194 ms QRS Dur : 084 ms QT Int : 466 ms P-R-T Axes : 043 047 088 degrees QTc Int : 499 ms Normal sinus rhythm Septal infarct (cited on or before 21-AUG-2019) Abnormal ECG When compared with ECG of 23-AUG-2019 06:44, No significant change was found Confirmed by Jake Hollingsworth ([id number]) on 08/24/2019 12:44:24 PM Referred By: REFERRED SELF Confirmed By:Jake Hollingsworth
== END 2019-08-24 12:35 | disposition home or self-care (01) | DRG 246 ==
LOC: ED 18:28 → CC 18:55 → 1E 20:05 → SUATTDRO 20:05 → 2S 08-22 18:10